=== PATIENT | female | born 1945 | race Caucasian/White ===

== ENCOUNTER 2017-02-01 17:17 | Observation (INO) | payer MEDICARE ==
--- NOTE | 2017-02-01 17:35 | ED ---
Chest Pain HPI - General Chief Complaint: Chest Pain Stated Complaint: Chest Pain/SOB Time Seen by Provider: 02/01/17 17:23 Source: patient, RN notes reviewed Mode of arrival: wheelchair Limitations: no limitations - History of Present Illness Initial Comments: This is a 71-year-old female history of 2 stents history of A. fib COPD sarcoidosis of the lung who states she had the onset yesterday while at work feeling hot sweaty lightheaded. She states she was unable to sleep throughout the night at work she passed out had some dizziness lightheadedness and shortness of breath. She states that she did take an inhaler for shortness of breath which did help for brief periods of time. He also states she has severe pain that sharp pain between her shoulder blade she states it was 40/10 severity now is down to an 8. She denies any fevers chills nausea vomiting focal weakness or arms or legs or other symptoms. She is on blood thinners at this time. MD Complaint: chest pain, other - Related Data Home Medications Medication Instructions Recorded Confirmed Atorvastatin [Lipitor] 20 mg PO DAILY 02/01/17 02/01/17 Diltiazem HCl [Cartia Xt] 240 mg PO DAILY 02/01/17 02/01/17 Flecainide Acetate 100 mg PO Q12H 02/01/17 02/01/17 Fluticasone/Salmeterol [Advair Hfa 2 puff INHALATION RT-BID 02/01/17 02/01/17 230-21 Mcg Inhaler] Losartan [Cozaar] 50 mg PO DAILY 02/01/17 02/01/17 Nitroglycerin Sl Tabs [Nitrostat] 0.4 mg SUBLINGUAL Q5M PRN 02/01/17 02/01/17 Ticagrelor [Brilinta] 90 mg PO DAILY 02/01/17 02/01/17 busPIRone HCl [Buspar] 10 mg PO BID 02/01/17 02/01/17 Allergies Allergy/AdvReac Type Severity Reaction Status Date / Time No Known Allergies Allergy Verified 02/01/17 18:26 Review of Systems ROS Statement: Those systems with pertinent positive or pertinent negative responses have been documented in the HPI. ROS Other: All systems not noted in ROS Statement are negative. EKG Findings - EKG Results: EKG: interpreted by ERMD (Atrial flutter rate was 118 QRS 98 daily since QTC of 328/461 old inferior changes nonspecific T-wave configuration) Past Medical History Past Medical History: Atrial Fibrillation, Coronary Artery Disease (CAD) Past Surgical History: Heart Catheterization With Stent Past Psychological History: No Psychological Hx Reported Smoking Status: Never smoker Past Alcohol Use History: None Reported Past Drug Use History: None Reported General Exam - General Exam Comments Initial Comments: This is a well-developed well-nourished awake alert oriented 3 female Limitations: no limitations General appearance: alert, anxious Head exam: Present: atraumatic, normocephalic, normal inspection Eye exam: Present: normal appearance, PERRL, EOMI. Absent: scleral icterus, conjunctival injection, periorbital swelling ENT exam: Present: normal exam, mucous membranes moist Neck exam: Present: normal inspection, full ROM. Absent: tenderness, meningismus, lymphadenopathy Respiratory exam: Present: decreased breath sounds Cardiovascular Exam: Present: tachycardia, irregular rhythm GI/Abdominal exam: Present: soft, normal bowel sounds. Absent: distended, tenderness, guarding, rebound, rigid, pulsatile mass, hernia Rectal exam: Present: deferred Extremities exam: Present: normal inspection, full ROM, normal capillary refill. Absent: tenderness, pedal edema, joint swelling, calf tenderness Back exam: Present: normal inspection, full ROM. Absent: tenderness, CVA tenderness (R), CVA tenderness (L), muscle spasm, paraspinal tenderness, vertebral tenderness Neurological exam: Present: alert, oriented X3, CN II-XII intact Psychiatric exam: Present: normal affect, normal mood Skin exam: Present: warm, dry, intact, normal color. Absent: rash Course Vital Signs 02/01/17 02/01/17 02/01/17 17:26 17:39 18:23 Temperature 97.4 F L Pulse Rate 101 H 118 H Pulse Rate [ 118 H [employer] Work[employer] ] Respiratory 18 18 Rate Blood Pressure 176/102 173/79 O2 Sat by Pulse 94 L 99 Oximetry 02/01/17 02/01/17 02/01/17 19:18 20:18 20:43 Temperature 97.1 F L Pulse Rate 94 102 H 98 Pulse Rate [ [employer] Worker ] Respiratory 18 20 18 Rate Blood Pressure 181/120 191/74 177/86 O2 Sat by Pulse 98 97 99 Oximetry Chest Pain MDM - MDM I did review the imaging and reports no acute findings. Patient will be admitted for evaluation of chest pain. Disposition Clinical Impression: Chest pain, Unstable angina pectoris Disposition: ADMITTED IP TO THIS HOSP Condition: Stable Referrals: Nonstaff,Physician [Primary Care Provider] - 1-2 days
[2017-02-01] MEDS ORDERED: RX INFO: IV CONTRAST WAS GIVEN 1 EACH MISC MISCELLANE PRN (18:12)
[2017-02-01 18:25] LABS: Basophils % (A) 1 %; CH 27.7; CHCM 31.7; Eosinophils % (A) 0 %; HCT 44.2 % (34.0-46.0); HDW 2.32; Luc # (Auto) 0.06; Luc % (Auto) 1; Lymphocytes # (A) 0.8 k/uL (1.0-4.8); Lymphocytes % (A) 12 %; MCH 27.8 pg (25.0-35.0); MCHC 31.7 g/dL (31.0-37.0); MCV 87.8 fL (80.0-100.0); Monocytes # (A) 0.2 k/uL (0-1.0); Monocytes % (A) 4 %; Neutrophils # (A) 5.4 k/uL (1.3-7.7); Neutrophils % (A) 82 %; RBC 5.03 m/uL (3.80-5.40); RDW 15.6 % (11.5-15.5); WBC 6.5 k/uL (3.8-10.6); WBC (Perox) 6.31
[2017-02-01 18:29] LABS: Calcium 9.9 mg/dL (8.4-10.2); Magnesium 1.9 mg/dL (1.6-2.3); Partial Thromboplastin Time 23.9 sec (22.0-30.0); Potassium 4.2 mmol/L (3.5-5.1); Total Bilirubin 0.7 mg/dL (0.2-1.3); Total Protein 7.2 g/dL (6.3-8.2)
[2017-02-01 18:31] LABS: INR 1.1 (<1.2); Prothrombin Time 11.2 sec (9.0-12.0)
[2017-02-01] MEDS ORDERED: SODIUM CHLORIDE 0.9% 500 ML IV STA (18:31)
[2017-02-01 18:55] LABS: Creatine Kinase MB 0.7 ng/mL (0.0-2.4); Troponin I 0.013 ng/mL (0.000-0.034)
--- NOTE | 2017-02-01 19:28 | CT ---
EXAMINATION TYPE: CT angio chest DATE OF EXAM: 02/01/2017 7:20 PM COMPARISON: NONE HISTORY: Pain between shoulder blades. Dizziness, syncope. Dissection vs. PE. CT DLP: 728.20 mGycm Automated exposure control for dose reduction was used. CONTRAST: CTA scan of the thorax is performed without and with IV Contrast, patient injected with 80 mL of Visi paque 320, pulmonary embolism protocol. There are 3-D post processed images.. FINDINGS: There is a large hiatal hernia. There is no pleural effusion. There are numerous enlarged bronchial a nd mediastinal lymph nodes with calcification. There is no sign of aortic aneurysm or dissection. I see no evidence of a filling defect in the pulmonary arteries. There is some pleural thickening on the left major fissure. There is no evidence of a pulmonary mass. There is spurring in the thoracic s pine. I see no bony destructive process. IMPRESSION: MODERATE HIATAL HERNIA. NO EVIDENCE OF PULMONARY EMBOLISM. NUMEROUS ENLARGED LYMPH NODES WITH CALCIFI CATION CONSISTENT WITH OLD GRANULOMATOUS DISEASE. 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
[2017-02-01] MEDS ORDERED: NITROGLYCERIN SL TABS 0.4 MG TAB SUBLINGUAL PRN (21:00)
[2017-02-01] MEDS: busPIRone HCl 10 MG TAB PO SCH (22:50)
[2017-02-01] MEDS: FLECAINIDE 50 MG TAB PO SCH (22:50)
[2017-02-02 00:06] LABS: Creatine Kinase MB 1.6 ng/mL (0.0-2.4); Troponin I 0.019 ng/mL (0.000-0.034)
[2017-02-02 06:14] LABS: Cholesterol 128 mg/dL (<200); HDL Cholesterol 53 mg/dL (40-60)
[2017-02-02 06:38] LABS: Creatine Kinase MB 0.5 ng/mL (0.0-2.4); Troponin I 0.022 ng/mL (0.000-0.034)
[2017-02-02] MEDS: SYMBICORT 160-4.5 MCG INHALER INHALATION SCH ×2 (07:32→21:06)
[2017-02-02] MEDS ORDERED: busPIRone HCl 10 MG TAB PO SCH (09:00)
[2017-02-02] MEDS ORDERED: TICAGRELOR 90 MG TAB PO SCH ×3 (09:00→21:00)
[2017-02-02] MEDS ORDERED: ATORVASTATIN 20 MG TAB PO SCH (09:00)
[2017-02-02] MEDS ORDERED: ATORVASTATIN 80 MG TAB PO STA (10:08)
[2017-02-02] MEDS ORDERED: NITROGLYCERIN SL TABS 0.4 MG TAB SUBLINGUAL PRN (10:08)
[2017-02-02] MEDS ORDERED: ALPRAZolam 0.5 MG TAB PO PRN (10:08)
[2017-02-02] MEDS ORDERED: ASPIRIN 325 MG TAB PO STA (10:08)
[2017-02-02] MEDS ORDERED: SODIUM CHLORIDE 0.9% 1,000 ML in EMPTY BAG 1 BAG IV ONE (10:08)
[2017-02-02] MEDS ORDERED: ALPRAZolam 0.25 MG TAB PO PRN (10:08)
[2017-02-02] MEDS: busPIRone HCl 10 MG TAB PO SCH ×2 (10:35→20:42)
[2017-02-02] MEDS: FLECAINIDE 50 MG TAB PO SCH (10:35)
[2017-02-02] MEDS: LOSARTAN 50 MG TAB PO SCH (10:35)
[2017-02-02] MEDS: DILTIAZEM CD 240 MG CAP.ER.24H PO SCH (10:35)
[2017-02-02] MEDS ORDERED: LIDOCAINE 2% INJ 20 MG/ML (20 ML MDV) ONE (10:44)
[2017-02-02] MEDS ORDERED: VERAPAMIL 2.5 MG/ML 2 ML AMP ONE (10:45)
[2017-02-02] MEDS ORDERED: HEPARIN SODIUM 1,000 UN/ML (10ML VL) ONE (10:45)
[2017-02-02] MEDS ORDERED: fentaNYL (PF) 50 MCG/ML 2 ML AMP ONE (10:45)
[2017-02-02] MEDS: ASPIRIN 81 MG PO SCH (10:58)
--- NOTE | 2017-02-02 10:59 | ECHOF ---
Referral Reason:chest pain MEASUREMENTS -------- HEIGHT: 157.5 cm WEIGHT: 118.8 kg BP: 117/56 RVIDd: 3.0 cm (< 3.3) IVSd: 1.3 cm (0.6 - 1.1) LVIDd: 3.9 cm (3.9 - 5.3) LVPWd: 1.3 cm (0.6 - 1.1) IVSs: 1.9 cm LVIDs: 2.7 cm LVPWs: 1.8 cm LA Diam: 3.7 cm (2.7 - 3.8) LAESV Index (A-L): 41.23 ml/m Ao Diam: 3.4 cm (2.0 - 3.7) AV Cusp: 2.1 cm (1.5 - 2.6) EPSS: 0.6 cm AV maxP.59 mmHg AV meanP.76 mmHg RAP: 5.00 mmHg RVSP: 20.82 mmHg MV EF SLOPE: 135.57 mm/s (70 - 150) MV EXCURSION: 1.62 cm (> 18.000) FINDINGS -------- Atrial fibrillation. This was a technically good study. The left ventricular size is normal. There is mild concentric left ventricular hypertrophy. Overa ll left ventricular systolic function is low-normal with, an EF between 50 - 55 %. The right ventricle is normal in size. LA is severely dilated >40 ml/m2 The right atrium is normal in size. There is mild aortic valve sclerosis. There is mild aortic stenosis present. Peak/mean gradient a cross the Aortic Valve is 14.59mmHg / 6.76mmHg. Mild mitral annular calcification present. Fljw-dh-dyicmjdy mitral regurgitation is present. Mild tricuspid regurgitation present. Right ventricular systolic pressure is normal at < 35 mmHg. The right ventricular systolic pressure, as measured by Doppler, is 20.82mmHg. The pulmonic valve was not well visualized. There is no pulmonic regurgitation present. The aortic root size is normal. Normal inferior vena cava with normal inspiratory collapse consistent with estimated right atrial pre ssure of 5 mmHg. There is no pericardial effusion. CONCLUSIONS -------- 1. Atrial fibrillation. 2. This was a technically good study. 3. There is mild concentric left ventricular hypertrophy. 4. Overall left ventricular systolic function is low-normal with, an EF between 50 - 55 %. 5. LA is severely dilated >40 ml/m2 6. There is mild aortic valve sclerosis. 7. There is mild aortic stenosis present. 8. Peak/mean gradient across the Aortic Valve is 14.59mmHg / 6.76mmHg. 9. Mild mitral annular calcification present. 10. Bwpl-aa-oeyvpwyy mitral regurgitation is present. 11. Mild tricuspid regurgitation present. 12. Right ventricular systolic pressure is normal at < 35 mmHg. 13. There is no pulmonic regurgitation present. 14. The aortic root size is normal. 15. Normal inferior vena cava with normal inspiratory collapse consistent with estimated right atrial pressure of 5 mmHg. 16. There is no pericardial effusion. MECHANIC SOUND TECHNICIAN: HERBER Vallejo
[2017-02-02] MEDS ORDERED: SODIUM CHLORIDE 0.9% 1,000 ML IV ONE (11:36)
[2017-02-02] MEDS ORDERED: fentaNYL (PF) 50 MCG/ML 2 ML AMP IV ONE (11:53)
[2017-02-02] MEDS ORDERED: ASPIRIN 81 MG ONE (11:53)
[2017-02-02] MEDS ORDERED: ASPIRIN 81 MG PO ONE (11:54)
[2017-02-02] MEDS ORDERED: LIDOCAINE 2% INJ 20 MG/ML SQ ONE ×2 (11:59→12:13)
[2017-02-02] MEDS ORDERED: HYDROmorphone 2 MG/ML 1 ML SYRINGE IV ONE (12:06)
[2017-02-02] MEDS ORDERED: HYDROmorphone 2 MG/ML 1 ML SYRINGE ONE (12:06)
[2017-02-02] MEDS ORDERED: NITROGLYCERIN 1000MCG/10ML SYRINGE INTRACORON ONE ×2 (12:16→12:20)
[2017-02-02] MEDS ORDERED: MIDAZOLAM 2 MG/2 ML VIAL ONE (12:17)
[2017-02-02] MEDS ORDERED: METOPROLOL TARTRATE 5 MG/5 ML VIAL IVP ONE ×2 (12:18→12:20)
[2017-02-02] MEDS ORDERED: IODIXANOL 320 MG/ML 100 ML INTRAARTER ONE (12:26)
[2017-02-02] MEDS ORDERED: RX INFO: IV CONTRAST WAS GIVEN 1 EACH MISC MISCELLANE PRN (12:41)
[2017-02-02] MEDS ORDERED: SODIUM CHLORIDE 0.9% 1,000 ML IV SCH (12:45)
--- NOTE | 2017-02-02 13:26 | P.CRDCN ---
History of Present Illness Consult date: 02/02/17 History of present illness: This 71-year-old female has medical history significant for coronary artery disease with recent stent 2 in [facility], sarcoidosis, A. fib , hypertension and anxiety. Patient states she is new to the area since her previous heart attack. She states in June of this year she had a heart attack and received 2 stents unknown which arteries. Since this time she has moved back to [place] to be closer to family. She has been following with Dr. Pino out of [place]. She decided to return to work at [employer] this week. Her first day on the job while working she became extremely diaphoretic, short of breath, dizzy and had left upper arm squeezing sensation. She denies chest pain. The symptoms seemed to subside when she sat down and rested. She attempted to return to work again the next day and the symptoms returned again. This is when she decided to present to the hospital. At the time of my examination she is resting comfortably in bed mildly short of breath. She states she just had come back from the bathroom. She denies chest pain, back pain, arm pain, dizziness, palpitations or nausea at the time of my exam. EKG reveals atrial flutter with nonspecific T-wave abnormalities. CTA negative for PE, indicative of celiac artery stenosis and hiatal hernia and numerous enlarged lymph nodes. Cardiac enzymes negaive x3 but trending upwards, BUN 23, Cr 1.59, Hgb 14, Plt 308. Blood pressure 117/56 heart rate 57 and irregular. Current cardiac medications include Lipitor 20 mg daily, diltiazem 240 mg daily , flecainide 100 mg twice a day, Cozaar 50 mg daily, brilinta 90 mg daily. Review of Systems CONSTITUTIONAL: Denies fever. Denies chills. EYES: Denies blurred vision. Denies vision changes. Denies eye pain. EARS, NOSE, MOUTH & THROAT: Denies headache. Denies sore throat. Denies ear pain. CARDIOVASCULAR: Denies chest pain. Complains of exertional shortness of breath. Denies orthopnea. Denies PND. Denies palpitations. RESPIRATORY: Denies cough. GASTROINTESTINAL: Denies abdominal pain. Denies diarrhea. Denies constipation. Denies nausea. Denies vomitng. MUSCULOSKELETAL: Denies myalgias. INTEGUMENTARY: Denies pruitis. Denies rash. NEUROLOGIC: Denies numbness. Denies tingling. Denies weakness. PSYCHIATRIC: Denies anxiety. Denies depression. ENDOCRINE: Denies fatigue. Denies weight change. Denies polydipsia. Denies polyurina. GENITOURINARY: Denies burning, hematuria or urgency with micturation. HEMATOLOGIC: Denies history of anemia. Denies bleeding. Past Medical History Past Medical History: Atrial Fibrillation, Coronary Artery Disease (CAD), Hypertension, Osteoarthritis (OA) Additional Past Medical History / Comment(s): sarcoidosis, RLS History of Any Multi-Drug Resistant Organisms: None Reported Past Surgical History: Heart Catheterization With Stent Additional Past Surgical History / Comment(s): pt has cards on stents but it doesnt designate which vessels Past Anesthesia/Blood Transfusion Reactions: No Reported Reaction Date of Last Stent Placement:: 06/23/2016 Past Psychological History: Anxiety Smoking Status: Never smoker Past Alcohol Use History: None Reported Past Drug Use History: None Reported - Past Family History Mother Family Medical History: Myocardial Infarction ([place]) Additional Family Medical History / Comment(s): early 70's Father Additional Family Medical History / Comment(s): father in MVA Sister(s) Additional Family Medical History / Comment(s): CAD Medications and Allergies Home Medications Medication Instructions Recorded Confirmed Type Atorvastatin [Lipitor] 20 mg PO DAILY 02/01/17 02/01/17 History Diltiazem HCl [Cartia Xt] 240 mg PO DAILY 02/01/17 02/01/17 History Flecainide Acetate 100 mg PO Q12H 02/01/17 02/01/17 History Fluticasone/Salmeterol [Advair Hfa 2 puff INHALATION RT-BID 02/01/17 02/01/17 History 230-21 Mcg Inhaler] Losartan [Cozaar] 50 mg PO DAILY 02/01/17 02/01/17 History Nitroglycerin Sl Tabs [Nitrostat] 0.4 mg SUBLINGUAL Q5M PRN 02/01/17 02/01/17 History Ticagrelor [Brilinta] 90 mg PO DAILY 02/01/17 02/01/17 History busPIRone HCl [Buspar] 10 mg PO BID 02/01/17 02/01/17 History Allergies Allergy/AdvReac Type Severity Reaction Status Date / Time No Known Allergies Allergy Verified 02/01/17 18:26 Physical Exam Vitals: Vital Signs Temp Pulse Pulse Pulse Resp BP BP 02/02/17 08:00 98.3 F 57 L 18 117/56 02/02/17 04:00 92 18 02/02/17 03:54 98.0 F 76 18 118/49 02/02/17 00:35 16 144/65 02/02/17 00:00 97.8 F 54 L 18 02/01/17 22:45 99 18 02/01/17 21:39 97.6 F 101 H 18 153/86 02/01/17 20:43 98 18 177/86 02/01/17 20:18 102 H 20 191/74 02/01/17 19:18 97.1 F L 94 18 181/120 02/01/17 18:23 118 H 18 173/79 02/01/17 17:39 118 H 02/01/17 17:26 97.4 F L 101 H 18 176/102 Pulse Ox 02/02/17 08:00 97 02/02/17 04:00 02/02/17 03:54 96 02/02/17 00:35 98 02/02/17 00:00 93 L 02/01/17 22:45 02/01/17 21:39 99 02/01/17 20:43 99 02/01/17 20:18 97 02/01/17 19:18 98 02/01/17 18:23 99 02/01/17 17:39 02/01/17 17:26 94 L Intake and Output 02/01/17 02/02/17 02/02/17 22:59 06:59 14:59 Other: Voiding Method Toilet Toilet # Voids 1 2 Weight 118.841 kg GENERAL: This is a 71-year-old female in no apparent distress at the time of my examination. Morbid obesity. HEENT: Head is atraumatic, normocephalic. Pupils are equal, round. Sclerae anicteric. Conjunctivae are clear. Mucous membranes of the mouth are moist. Neck is supple. There is no jugular venous distention. No carotid bruit is heard. LUNGS: Clear to auscultation no wheezes, rales or rhonchi. No chest wall tenderness is noted on palpation or with deep breathing. HEART: Irregular rate and rhythm without murmurs, rubs or gallops. S1 and S2 heard. ABDOMEN: Soft, nontender. Bowel sounds are heard. No organomegaly noted. EXTREMITIES: 2+ peripheral pulses with no evidence of peripheral edema and no calf tenderness noted. NEUROLOGIC: Patient is awake, alert and oriented x3. Results 02/01/17 17:33 02/01/17 17:33 Cardiac Enzymes 02/01/17 02/01/17 02/01/17 Range/Units 17:33 17:33 23:11 AST 18 (14-36) U/L CK-MB (CK-2) 0.7 1.6 (0.0-2.4) ng/mL Troponin I 0.013 0.019 (0.000-0.034) ng/mL 02/02/17 Range/Units 05:26 AST (14-36) U/L CK-MB (CK-2) 0.5 (0.0-2.4) ng/mL Troponin I 0.022 (0.000-0.034) ng/mL Coagulation 02/01/17 Range/Units 17:33 PT 11.2 (9.0-12.0) sec APTT 23.9 (22.0-30.0) sec Lipids 02/02/17 Range/Units 05:26 Triglycerides 97 (<150) mg/dL Cholesterol 128 (<200) mg/dL HDL Cholesterol 53 (40-60) mg/dL CBC 02/01/17 Range/Units 17:33 WBC 6.5 (3.8-10.6) k/uL RBC 5.03 (3.80-5.40) m/uL Hgb 14.0 (11.4-16.0) gm/dL Hct 44.2 (34.0-46.0) % Plt Count 308 (150-450) k/uL Comprehensive Metabolic Panel 02/01/17 Range/Units 17:33 Sodium 144 (137-145) mmol/L Potassium 4.2 (3.5-5.1) mmol/L Chloride 106 (98-107) mmol/L Carbon Dioxide 24 (22-30) mmol/L BUN 23 H (7-17) mg/dL Creatinine 1.59 H (0.52-1.04) mg/dL Glucose 136 H (74-99) mg/dL Calcium 9.9 (8.4-10.2) mg/dL AST 18 (14-36) U/L ALT 19 (9-52) U/L Alkaline Phosphatase 119 (38-126) U/L Total Protein 7.2 (6.3-8.2) g/dL Albumin 4.5 (3.5-5.0) g/dL Current Medications Generic Name Dose Route Start Last Admin Trade Name Freq PRN Reason Stop Dose Admin Aspirin 81 mg 02/02/17 09:00 Aspirin PO DAILY [facility] Atorvastatin Calcium 20 mg 02/02/17 09:00 Lipitor PO DAILY [facility] Budesonide/Formoterol Fumarate 2 puff 02/02/17 08:00 02/02/17 07:32 Symbicort 160-4.5 Mcg Inhaler INHALATION 2 puff RT-BID BALJINDER Administration Buspirone HCl 10 mg 02/01/17 22:10 02/01/17 22:50 Buspar PO 10 mg BID BALJINDER Administration Diltiazem HCl 240 mg 02/02/17 09:00 Cardizem Cd PO DAILY BALJINDER Flecainide Acetate 100 mg 02/01/17 21:15 02/01/17 22:50 Tambocor PO 100 mg BID BALJINDER Administration Sodium Chloride 1,000 mls @ 20 mls/hr 02/01/17 21:00 Saline 0.9% IV .Q24H BALJINDER Losartan Potassium 50 mg 02/02/17 09:00 Cozaar PO DAILY [facility] Miscellaneous Information 1 each 02/01/17 18:12 02/01/17 18:20 Rx Info: Iv Contrast Was Given MISCELLANE 02/03/17 18:12 1 each DAILY PRN Administration Per Protocol Nitroglycerin 0.4 mg 02/01/17 21:00 02/02/17 00:37 Nitrostat SUBLINGUAL 0.4 mg Q5M PRN Administration Chest Pain Ticagrelor 90 mg 02/02/17 09:00 Brilinta PO DAILY [facility] Intake and Output 02/01/17 02/02/17 02/02/17 22:59 06:59 14:59 Other: Voiding Method Toilet Toilet # Voids 1 2 Weight 118.841 kg 02/01/17 17:33 02/01/17 17:33 Assessment and Plan Assessment: ASSESSMENT 1. Unstable angina 2. Known coronary artery disease with 2 stents placed in June in [place] 3. Hypertension 4. Hyperlipidemia 5. Atrial fibrillation, unsure if paroxysmal or persistent. Chronic not on anticoagulation. PLAN Obtain records from [place] as well as Dr. Pino in [place] for review. Obtain 2-D echocardiogram and Doppler study to assess cardiac structure and function. Increased per Brilinta to twice a day dosing as is recommended for proper platelet activation and aggregation s/p coronary artery stenting. Proceed with cardiac catheterization to evaluate progression of coronary artery disease. I have discussed the risks, benefits and alternative therapies for the above-mentioned procedure and for both sedation/analgesia as well as necessary blood product administration, if indicated, as they pertain to this patient. The patient has indicated understanding and acceptance of the risks and procedures discussed. She is agreeable to proceed with the above stated procedure. Further recommendations will be based upon clinical course. Nurse Practitioner note has been reviewed, I agree with a documented findings and plan of care. Patient was seen and examined.
--- NOTE | 2017-02-02 15:30 | CC ---
CARDIAC CATHETERIZATION REPORT Mrs. Carlson is a 71-year-old female who moved to our area from [place] recently. She has a known history of coronary artery disease, status post stenting of the LAD and a left circumflex done in June of 2016, as well as history of paroxysmal atrial fibrillation. She came in with symptoms of dizziness, arm discomfort, reminding her somewhat of the symptoms she had before, as well as dyspnea. Her cardiac enzymes revealed no evidence of acute changes, but because of those findings, recommendation made regarding cardiac catheterization. The procedure as well as risks and complications were discussed with the patient who is in full understanding and agreement. PROCEDURE: Patient was brought to the [employer] in a fasting semi-sedated state after receiving fentanyl and Benadryl and achieving moderate conscious sedated state. Attempt to advance the wire in the right radial artery was unsuccessful because of spasm. Using Xylocaine anesthesia and Seldinger technique, a 6-Prydeinig sheath was introduced in the right femoral artery. Selective right and left angiography performed using a 6- Prydeinig 4 bend right and left Annamaria catheter, multiple views of the coronary artery including hemiaxial views were obtained. Following that, a 5-Prydeinig tight pigtail catheter introduced into the left ventricle and pressures were calculated. Following that, catheter and sheaths were removed. Hemostasis was obtained with deployment of an Angio- Seal. There was no immediate complication. Patient is returned to her room in stable condition. FINDINGS: FLUOROSCOPY: There was calcification involving the LAD as well as the proximal right coronary artery. LEFT MAIN: This is a short size vessel, bifurcating into left circumflex, left anterior descending artery. Left main coronary artery is without any evidence of high- grade stenosis. LEFT ANTERIOR DESCENDING ARTERY: This is a large-sized vessel reaching toward the apex with a wraparound apex segment giving rise to 2 diagonal branches of moderate caliber. The stented segment in the mid LAD is patent with no evidence of significant restenosis. There was mild intimal disease tubular beyond the stent of 30% without any evidence of high-grade stenosis. LEFT CIRCUMFLEX: This is a nondominant vessel giving rise to a large obtuse marginal branch. The mid segment of the left circumflex in the stented area is patent. There is mild intimal disease proximal 30% without any evidence of high-grade stenosis. RIGHT CORONARY ARTERY: This is a large dominant vessel bifurcating distally into PDA, posterolateral segment and branches. The ostium of the right coronary artery has an area of stenosis of about 50%. There is mild intimal disease in the mid right coronary artery of 20% to 30%. The rest of the vessel has no high-grade stenosis. LEFT VENTRICULOGRAM: Left ventriculogram is not performed. HEMODYNAMICS: There was no gradient across the aortic valve. The left ventricle end- diastolic pressure was 8 to 10 mmHg. CONCLUSION: 1. Patent stent to the left anterior descending artery and to the left circumflex with mild disease proximal to the stented segment in the circ. 2. Moderate disease in the ostium of the right coronary artery in a calcified segment. RECOMMENDATION: In view of finding anatomy, I would recommend to continue medical therapy with aggressive risk modification and further adjustment for medical regimen regarding to her atrial fibrillation-flutter with attempt to restore sinus mechanism and depending on her progress, further recommendation will be made. Those findings and recommendation were discussed with the patient who is in full understanding and agreement. DURATION OF PROCEDURE: 33 minutes. DREW / ELKIN: [id number] / GLORIA
--- NOTE | 2017-02-02 16:16 | P.HPIM ---
History of Present Illness -year-old female with a history of sarcoidosis came in with complaints of chest pain which are started as today which is pressure-like sensation 5-6 x 10 in severity became extremely diaphoretic short of breath dizzy patient underwent cardiac catheterization showed moderate disease in one of the coronary vasculature medical treatment was advised by cardiology patient denied any fever chills patient chest pain is nonpleuritic not associated with food patient denied any fever, chills, nausea, vomiting. Patient appears to have chronic renal dysfunction because of which patient is being hydrated today patient has borderline kidney function with creatinine of 1.[address] angios as well as cardiac catheterization last 24 hours. Review of Systems REVIEW OF SYSTEMS: CONSTITUTIONAL: No fever, no malaise, no fatigue. HEENT: No recent visual problems or hearing problems. Denied any sore throat. CARDIOVASCULAR: No orthopnea, PND, no palpitations, no syncope. PULMONARY: No shortness of breath, no cough, no hemoptysis. GASTROINTESTINAL: No diarrhea, no nausea, no vomiting, no abdominal pain. Normoactive bowel sounds. NEUROLOGICAL: No headaches, no weakness, no numbness. HEMATOLOGICAL: Denies any bleeding or petechiae. GENITOURINARY: Denies any burning micturition, frequency, or urgency. MUSCULOSKELETAL/RHEUMATOLOGICAL: Denies any joint pain, swelling, or any muscle pain. ENDOCRINE: Denies any polyuria or polydipsia. The rest of the 14-point review of systems is negative. Past Medical History Past Medical History: Atrial Fibrillation, Coronary Artery Disease (CAD), Hypertension, Osteoarthritis (OA) Additional Past Medical History / Comment(s): sarcoidosis, RLS History of Any Multi-Drug Resistant Organisms: None Reported Past Surgical History: Heart Catheterization With Stent Additional Past Surgical History / Comment(s): pt has cards on stents but it doesnt designate which vessels Past Anesthesia/Blood Transfusion Reactions: No Reported Reaction Date of Last Stent Placement:: 06/23/2016 Past Psychological History: Anxiety Smoking Status: Never smoker Past Alcohol Use History: None Reported Past Drug Use History: None Reported - Past Family History Mother Family Medical History: Myocardial Infarction ([place]) Additional Family Medical History / Comment(s): early 70's Father Additional Family Medical History / Comment(s): father in MVA Sister(s) Additional Family Medical History / Comment(s): CAD Medications and Allergies Home Medications Medication Instructions Recorded Confirmed Type Atorvastatin [Lipitor] 20 mg PO DAILY 02/01/17 02/01/17 History Diltiazem HCl [Cartia Xt] 240 mg PO DAILY 02/01/17 02/01/17 History Flecainide Acetate 100 mg PO Q12H 02/01/17 02/01/17 History Fluticasone/Salmeterol [Advair Hfa 2 puff INHALATION RT-BID 02/01/17 02/01/17 History 230-21 Mcg Inhaler] Losartan [Cozaar] 50 mg PO DAILY 02/01/17 02/01/17 History Nitroglycerin Sl Tabs [Nitrostat] 0.4 mg SUBLINGUAL Q5M PRN 02/01/17 02/01/17 History Ticagrelor [Brilinta] 90 mg PO DAILY 02/01/17 02/01/17 History busPIRone HCl [Buspar] 10 mg PO BID 02/01/17 02/01/17 History Allergies Allergy/AdvReac Type Severity Reaction Status Date / Time No Known Allergies Allergy Verified 02/01/17 18:26 Physical Exam Vitals: Vital Signs Temp Pulse Pulse Pulse Pulse Resp BP 02/02/17 16:00 18 02/02/17 13:30 90 02/02/17 13:15 60 02/02/17 13:00 68 02/02/17 12:45 97.6 F 56 L 18 02/02/17 12:00 56 L 18 02/02/17 08:00 98.3 F 92 57 L 18 02/02/17 04:00 92 18 02/02/17 03:54 98.0 F 76 18 02/02/17 00:35 16 02/02/17 00:00 97.8 F 54 L 18 02/01/17 22:45 99 18 02/01/17 21:39 97.6 F 101 H 18 02/01/17 20:43 98 18 177/86 02/01/17 20:18 102 H 20 191/74 02/01/17 19:18 97.1 F L 94 18 181/120 02/01/17 18:23 118 H 18 173/79 02/01/17 17:39 118 H 02/01/17 17:26 97.4 F L 101 H 18 176/102 BP Pulse Ox 02/02/17 16:00 02/02/17 13:30 103/60 98 02/02/17 13:15 158/69 92 L 02/02/17 13:00 155/99 99 02/02/17 12:45 147/91 95 02/02/17 12:00 02/02/17 08:00 117/56 97 02/02/17 04:00 02/02/17 03:54 118/49 96 02/02/17 00:35 144/65 98 02/02/17 00:00 93 L 02/01/17 22:45 02/01/17 21:39 153/86 99 02/01/17 20:43 99 02/01/17 20:18 97 02/01/17 19:18 98 02/01/17 18:23 99 02/01/17 17:39 02/01/17 17:26 94 L Intake and Output 02/02/17 02/02/17 02/02/17 06:59 14:59 22:59 Intake Total 290 Balance 290 Intake: IV 50 Oral 240 Other: Voiding Method Toilet Toilet Toilet # Voids 2 2 PHYSICAL EXAMINATION: GENERAL: The patient is alert and oriented x3, not in any acute distress. Well developed, well nourished. HEENT: Pupils are round and equally reacting to light. EOMI. No scleral icterus. No conjunctival pallor. Normocephalic, atraumatic. No pharyngeal erythema. No thyromegaly. CARDIOVASCULAR: S1 and S2 present. No murmurs, rubs, or gallops. PULMONARY: Chest is clear to auscultation, no wheezing or crackles. ABDOMEN: Soft, nontender, nondistended, normoactive bowel sounds. No palpable organomegaly. MUSCULOSKELETAL: No joint swelling or deformity. EXTREMITIES: No cyanosis, clubbing, or pedal edema. NEUROLOGICAL: Gross neurological examination did not reveal any focal deficits. SKIN: No rashes. Results CBC & Chem 7: 02/01/17 17:33 02/01/17 17:33 Labs: Abnormal Lab Results - Last 24 Hours (Table) 02/01/17 02/01/17 Range/Units 17:33 17:33 RDW 15.6 H (11.5-15.5) % Lymphocytes # 0.8 L (1.0-4.8) k/uL BUN 23 H (7-17) mg/dL Creatinine 1.59 H (0.52-1.04) mg/dL Glucose 136 H (74-99) mg/dL Thrombosis Risk Factor Assmnt - Choose All That Apply Each Factor Represents 1 point: Obesity (BMI >25) Each Risk Factor Represents 2 Points: Age 61-74 years Thrombosis Risk Factor Assessment Total Risk Factor Score: 3 Thrombosis Risk Factor Assessment Level: Moderate Risk Assessment and Plan Plan: #1 chest pain: Patient underwent cardiac catheterization management as mentioned above. #2 sarcoidosis not in and sarcoid exacerbation we'll continue with her home medications. #3 coronary artery disease #4 hypertension #5 atrial fibrillation history not on anticoagulation
[2017-02-02] MEDS: SODIUM CHLORIDE 0.9% 1,000 ML IV SCH (19:49)
[2017-02-02] MEDS: AMIODARONE 200 MG TAB PO SCH (20:42)
[2017-02-02] MEDS ORDERED: ACETAMINOPHEN TAB 325 MG TAB PO PRN (21:34)
[2017-02-03 06:19] LABS: Calcium 9.4 mg/dL (8.4-10.2); Potassium 4.1 mmol/L (3.5-5.1)
[2017-02-03] MEDS: SODIUM CHLORIDE 0.9% 1,000 ML IV SCH (06:20)
[2017-02-03] MEDS: SYMBICORT 160-4.5 MCG INHALER INHALATION SCH (07:22)
[2017-02-03] MEDS: ASPIRIN 81 MG PO SCH ×2 (08:59→09:09)
[2017-02-03] MEDS: AMIODARONE 200 MG TAB PO SCH (08:59)
[2017-02-03] MEDS: busPIRone HCl 10 MG TAB PO SCH (09:00)
[2017-02-03] MEDS: DILTIAZEM CD 240 MG CAP.ER.24H PO SCH (09:00)
[2017-02-03] MEDS ORDERED: ATORVASTATIN 20 MG TAB PO SCH (09:00)
[2017-02-03] MEDS ORDERED: CLOPIDOGREL 75 MG TAB PO SCH (09:00)
[2017-02-03] MEDS: LOSARTAN 50 MG TAB PO SCH (09:01)
--- NOTE | 2017-02-03 09:22 | US ---
EXAMINATION TYPE: US gallbladder DATE OF EXAM: 02/02/2017 COMPARISON: CT chest 02/01/2017 CLINICAL HISTORY: elevated liver enzymes. EXAM MEASUREMENTS: Liver Length: 14.2 cm Gallbladder Wall: 0.3 cm CBD: 0.3 cm Right Kidney: 10.1 x 4.8 x 3.8 cm Pancreas: Very limited visualization mostly obscured by bowel gas Liver: echogenic structure with some vascularity measuring 1.2 x 1.2 x 1.4cm in the right lobe bonifacio esponds to hypodensity seen on CT. Liver echotexture is somewhat heterogeneous. Gallbladder: cholelithiasis Evidence for sonographic Chow's sign: no CBD: wnl Right Kidney: anechoic tubular structure seen measuring 1.4 x 0.7 x 0.7cm, cortical medullary differ entiation is maintained. Nonobstructive calculus at the upper pole the right kidney is not seen defin itively. IMPRESSION: Cholelithiasis. Findings suggest hepatocellular disease, indeterminate echogenic mass wit hin the right lobe. Consider dedicated liver CT or MRI for better evaluation. There may be some mild right-sided hydronephrosis. Nephrolithiasis seen on CT is not confirmed on ultrasound.
[2017-02-03] MEDS ORDERED: APIXABAN 5 MG TAB PO SCH (09:30)
[2017-02-03 11:32] VITALS: BP 135/95; PULSE 90; RESP 18; TEMP 97.7
--- NOTE | 2017-02-03 11:52 | PN ---
PROGRESS NOTE Ms. Carlson is a 71-year-old female with known history of coronary artery disease, status post stenting of the LAD and the left circumflex, history atrial fibrillation, who presented with symptoms of dyspnea, fatigue, dizziness and arm discomfort. She underwent cardiac catheterization that revealed patent stents in the LAD in the left circumflex with moderate disease in the ostium of the right coronary artery. She is feeling well this morning. She has no overt signs of angina pectoris. Her breathing is stable. She denies any dizziness or palpitation. She continues to be in atrial fibrillation that is flutter with overall controlled ventricular response. She continues to be on aspirin once a day, Plavix 75 mg daily, amiodarone 200 mg twice a day, diltiazem CD 240 mg daily, losartan 50 mg daily. PHYSICAL EXAMINATION: Blood pressure 117/70 with a heart rate in the 90s. LUNGS: Clear heart irregular regular S1, S2. No S3. No rub. ABDOMEN: Soft, nontender. RIGHT GROIN: No hematoma. LAB DATA: BUN creatinine of 25 and 1.18. IMPRESSION: 1. Coronary disease with no evidence of high-grade stenosis. 2. Persistent chronic atrial fibrillation-flutter. 3. Hypertension. 4. Hyperlipidemia. RECOMMENDATION: I will stop the aspirin. I will add to her regimen Eliquis 5 mg twice a day. The patient should be able to be discharged home today. She will be followed as an outpatient and if she continues to be in the atrial arrhythmia, then I would recommend to proceed with attempt to cardiovert her and restore sinus mechanism. She will continue on the clopidogrel instead of Brilinta. MMODL / IJN: [id number] /
--- NOTE | 2017-02-03 15:49 | P.DS ---
Providers Date of admission: 02/01/17 21:00 patient was admitted for chest pain rule out acute coronary syndromes patient the is cleared for discharge from cardiology perspective patient has clear catheterization OF THE GALLBLADDER WAS OBTAINED BECAUSE OF SUSPICION OF CHOLELITHIASIS CONTRIBUTING TO HER SYMPTOMS PATIENT IS FOUND TO HAVE A SUSPICIOUS LESION ON THE LIVER FOR WHICH SHE PATIENT WAS GIVEN A PRESCRIPTION FOR OUTPATIENT MRA RESULTS TO BE FAXED TO PRIMARY CARE PHYSICIAN. PATIENT IS OTHERWISE CLINICALLY DOING WELL WAS COMPLAINING OF PAIN IN THE SHOULDER AREA ON THE LEFT SIDE WHICH IS MUSCULOSKELETAL IN NATURE AND PATIENT WILL BE DISCHARGED TODAY. PHYSICAL EXAMINATION: GENERAL: The patient is alert and oriented x3, not in any acute distress. Well developed, well nourished. HEENT: Pupils are round and equally reacting to light. EOMI. No scleral icterus. No conjunctival pallor. Normocephalic, atraumatic. No pharyngeal erythema. No thyromegaly. CARDIOVASCULAR: S1 and S2 present. No murmurs, rubs, or gallops. PULMONARY: Chest is clear to auscultation, no wheezing or crackles. ABDOMEN: Soft, nontender, nondistended, normoactive bowel sounds. No palpable organomegaly. MUSCULOSKELETAL: No joint swelling or deformity. EXTREMITIES: No cyanosis, clubbing, or pedal edema. NEUROLOGICAL: Gross neurological examination did not reveal any focal deficits. SKIN: No rashes. #1 chest pain: Patient underwent cardiac catheterization management as mentioned above. #2 sarcoidosis not in and sarcoid exacerbation we'll continue with her home medications. #3 coronary artery disease #4 hypertension #5 atrial fibrillation history not on anticoagulation #6 suspicious lesion in the liver Attending physician: Santhosh Marie Consults: 02/01/17 21:00 Consult Physician Urgent Consulting Provider: Tushar Pal Consult Reason/Comments: Chest pain Do you want consulting provider notified?: Yes Primary care physician: Physician Nonstaff Patient Condition at Discharge: Stable Plan - Discharge Summary New Discharge Prescriptions: New Amiodarone [Cordarone] 200 mg PO BID #60 tab Apixaban [Eliquis] 5 mg PO BID #60 tab Atorvastatin [Lipitor] 40 mg PO DAILY #30 tab Clopidogrel [Plavix] 75 mg PO DAILY #30 tab Continue Losartan [Cozaar] 50 mg PO DAILY Diltiazem HCl [Cartia Xt] 240 mg PO DAILY Discontinued Ticagrelor [Brilinta] 90 mg PO DAILY Flecainide Acetate 100 mg PO Q12H Atorvastatin [Lipitor] 20 mg PO DAILY No Action busPIRone HCl [Buspar] 10 mg PO BID Nitroglycerin Sl Tabs [Nitrostat] 0.4 mg SUBLINGUAL Q5M PRN PRN Reason: Chest Pain Fluticasone/Salmeterol [Advair Hfa 230-21 Mcg Inhaler] 2 puff INHALATION RT- BID Discharge Medication List Diltiazem HCl [Cartia Xt] 240 mg PO DAILY 02/01/17 [History] Fluticasone/Salmeterol [Advair Hfa 230-21 Mcg Inhaler] 2 puff INHALATION RT-BID 02/01/17 [History] Losartan [Cozaar] 50 mg PO DAILY 02/01/17 [History] Nitroglycerin Sl Tabs [Nitrostat] 0.4 mg SUBLINGUAL Q5M PRN 02/01/17 [History] busPIRone HCl [Buspar] 10 mg PO BID 02/01/17 [History] Amiodarone [Cordarone] 200 mg PO BID #60 tab 02/03/17 [Rx] Apixaban [Eliquis] 5 mg PO BID #60 tab 02/03/17 [Rx] Atorvastatin [Lipitor] 40 mg PO DAILY #30 tab 02/03/17 [Rx] Clopidogrel [Plavix] 75 mg PO DAILY #30 tab 02/03/17 [Rx] Follow up Appointment(s)/Referral(s): Jim Kamara MD [STAFF PHYSICIAN] - 2 Weeks Nonstaff,Physician [Primary Care Provider] - 1-2 days Activity/Diet/Wound Care/Special Instructions: HEART HEALTHY DIET LIMITED ACTIVITY: AVOID EXCESSIVE STAIR CLIMBING, AVOID HEAVY LIFTING PULLING OR PUSHING ANYTHING GREATER THAN 5 LBS FOR 5 DAYS, AVOID STRENUOUS ACTIVITY. MONITOR SITE ( GROIN AND WRIST) FOR SIGNS OF INFECTION (REDNESS, WARMTH TO SKIN , ABNORMAL DRAINAGE, FEVER). IF YOU DEVELOP ANY BLEEDING/OOZING/BRUISING, HOLD DIRECT PRESSURE TO SITES AND GET TO ER IF BLEEDING DOES NOT STOP OR LARGE BRUISE/SWELLING DEVELOPS. Discharge Disposition: HOME SELF-CARE
== END 2017-02-03 15:23 | disposition home or self-care (01) ==
LOC: EC 17:17 → 3OBS 21:00
PROVIDERS: ADMIT Internal Medicine; ATTEND Internal Medicine
DX: R07.89 Other chest pain (principal); I48.91 Unspecified atrial fibrillation; J44.9 Chronic obstructive pulmonary disease, unspecified; D86.9 Sarcoidosis, unspecified; I10 Essential (primary) hypertension; I25.10 Atherosclerotic heart disease of native coronary artery without angina pectoris; I48.1 Persistent atrial fibrillation; I48.92 Unspecified atrial flutter; F41.9 Anxiety disorder, unspecified; I25.2 Old myocardial infarction; M19.90 Unspecified osteoarthritis, unspecified site; G25.81 Restless legs syndrome; E66.01 Morbid (severe) obesity due to excess calories; E78.5 Hyperlipidemia, unspecified; K76.9 Liver disease, unspecified; M25.512 Pain in left shoulder; Z79.899 Other long term (current) drug therapy; Z95.5 Presence of coronary angioplasty implant and graft; Z68.42 Body mass index [BMI] 45.0-49.9, adult; Z82.49 Family history of ischemic heart disease and other diseases of the circulatory system
CPT/HCPCS: 99152; 99153; 96360; 96361; 99285; 36415; 94640 ×2; 93005; 93306; 93458; 80061; 80053; 80048; 82550 ×2; 82553 ×2; 83735; 84484 ×2; 85025; 85610; 85730; 76705; 71275; G0378 ×3; C1760; C1894 ×2; C1769; J2001; J1170; Q9967 ×2; J3010